=== PATIENT | male | born 1995 | race American Indian/Alaskan Native ===

== ENCOUNTER 2020-07-16 07:24 | Emergency (ER) | payer BC, MEDICAID ==
[2020-07-16 07:35] VITALS: BP 123/72
--- NOTE | 2020-07-16 07:43 | Emergency Department Report ---
- General Chief complaint: Skin Rash Stated complaint: RASH ALL OVER Time Seen by Provider: 07/16/20 07:35 Source: patient Mode of arrival: Ambulatory Limitations: No Limitations - History of Present Illness Initial comments: 25-year-old male with no significant past medical history presents to the ER today with complaints of rash. Patient states that he developed this pruritic r geronimo about 2 weeks ago. He states that right now is mainly on his arms and legs but he has seen it on his trunk. He states that the only new thing that he started about 2 weeks ago was Axe body wash and Tide powder. He states that he has used this brand of type before but more so in the liquid form. He states that the Axe body wash is never used before. He states that he did stop using the Axe body wash this past Sunday but he still continues to break out. He denies any other new contacts, including new meds recently. He denies similar symptoms in the past. He denies any associated swelling, difficulty breathing, coughing, wheezing or any other symptoms at this time. MD complaint: rash -: Gradual, week(s) (2) - Related Data Previous Rx's Medication Instructions Recorded Last Taken Type Hydrocortisone/Pramoxine 10 gm RC TID #1 foam 05/13/15 Unknown Rx [Proctofoam-Hc Foam] predniSONE [Deltasone] 60 mg PO QDAY #15 tab 07/16/20 Unknown Rx Allergies Allergy/AdvReac Type Severity Reaction Status Date / Time Penicillins AdvReac Rash Verified 05/13/15 09:24 Abscess Boil HPI - HPI Chief Complaint: Skin Rash Stated Complaint: RASH ALL OVER Time Seen by Provider: 07/16/20 07:35 Home Medications: Previous Rx's Medication Instructions Recorded Last Taken Type Hydrocortisone/Pramoxine 10 gm RC TID #1 foam 05/13/15 Unknown Rx [Proctofoam-Hc Foam] predniSONE [Deltasone] 60 mg PO QDAY #15 tab 07/16/20 Unknown Rx Allergies/Adverse Reactions: Allergies Allergy/AdvReac Type Severity Reaction Status Date / Time Penicillins AdvReac Rash Verified 05/13/15 09:24 ED Review of Systems ROS: Stated complaint: RASH ALL OVER Other details as noted in HPI Comment: All other systems reviewed and negative Constitutional: denies: chills, fever Eyes: denies: eye pain, eye discharge, vision change ENT: denies: ear pain, throat pain, dental pain, hearing loss, epistaxis, congestion Respiratory: denies: cough, shortness of breath, SOB with exertion, SOB at rest, wheezing Cardiovascular: denies: chest pain, palpitations Gastrointestinal: denies: abdominal pain, nausea, diarrhea Genitourinary: denies: urgency, dysuria Skin: rash Neurological: denies: headache, weakness, paresthesias Psychiatric: denies: anxiety, depression Hematological/Lymphatic: denies: easy bleeding, easy bruising ED Past Medical Hx - Past Medical History Previous Medical History?: No - Surgical History Past Surgical History?: Yes Additional Surgical History: Hemoorrhoid removal - Social History Smoking Status: Former Smoker Substance Use Type: Alcohol - Medications Home Medications: Home Medications Medication Instructions Recorded Confirmed Last Taken Type Hydrocortisone/Pramoxine 10 gm RC TID #1 foam 05/13/15 Unknown Rx [Proctofoam-Hc Foam] predniSONE [Deltasone] 60 mg PO QDAY #15 tab 07/16/20 Unknown Rx ED Physical Exam - General Limitations: No Limitations General appearance: alert, in no apparent distress - Head Head exam: Present: atraumatic, normocephalic, normal inspection - Eye Eye exam: Present: normal appearance, PERRL, EOMI Pupils: Present: normal accommodation - ENT ENT exam: Present: normal exam, mucous membranes moist - Neck Neck exam: Present: normal inspection - Respiratory Respiratory exam: Present: normal lung sounds bilaterally. Absent: respiratory distress - Cardiovascular Cardiovascular Exam: Present: regular rate, normal rhythm, normal heart sounds - Neurological Exam Neurological exam: Present: alert, oriented X3, CN II-XII intact, normal gait - Psychiatric Psychiatric exam: Present: normal affect, normal mood - Skin Skin exam: Present: rash (Erythematous maculopapular urticarial rash scattered both thighs, and arms and mildly to the chest.) ED Course Vital Signs 07/16/20 07/16/20 07:33 07:40 Temperature 98.9 F Pulse Rate 92 H Respiratory 18 18 Rate Blood Pressure 123/72 O2 Sat by Pulse 99 Oximetry ED Medical Decision Making - Medical Decision Making The patient is resting comfortably, is alert and in no distress. The patient has a normal mental status and is neurologically intact. The rash does not have petechiae or purpura. There are no mucous membrane lesions, no signs of abscess and no bullae. The patient appears well, is able to tolerate food or fluid by mouth and has no signs of systemic toxicity. The history, exam,and current condition do not demonstrate signs of sepsis or serious bacterial infection, [place] spotted fever, meningitis, meningococcemia, Lyme's disease, toxic shock syndrome or other significant systemic illness requiring further treatment, testing or consultation in the emergency department. The vital signs have been stable. The patient's condition is stable and appropriate for discharge. The patient or caregiver will pursue further outpatient evaluation with the primary care physician. Critical care attestation.: If time is entered above; I have spent that time in minutes in the direct care of this critically ill patient, excluding procedure time. ED Disposition Clinical Impression: Hives Disposition: DC-01 TO HOME OR SELFCARE Is pt being admited?: No Does the pt Need Aspirin: No Condition: Stable Instructions: Hives Additional Instructions: Take the prednisone as prescribed. I also recommend that you take benadryl 25mg- 50mg every 6hrs as needed for itching. The Benadryl can make you drowsy so try not to take it if you are driving or operating equipment. Follow-up with the primary care doctor listed on your discharge instructions. If your symptoms become recurrent you will likely need to see a air breaker operator. Return to the ER if your symptoms worsens in any way. Prescriptions: predniSONE [Deltasone] 60 mg PO QDAY #15 tab Referrals: PASQUALE NORTON MD [Staff Physician] - 3-5 Days Time of Disposition: 07:43
== END 2020-07-16 08:03 | disposition home or self-care (01) ==
LOC: ED 07:24
DX: L50.9 Urticaria, unspecified (principal); Z98.890 Other specified postprocedural states; Z79.899 Other long term (current) drug therapy; Z88.0 Allergy status to penicillin
CPT/HCPCS: 99281